=== PATIENT | female | born 1940 | race Caucasian/White ===

== ENCOUNTER 2021-07-01 14:44 | Inpatient (IN) ==
[2021-07-01] MEDS ORDERED: STAT IV Infusion **Titration per Protocol STA ×4 (14:56→17:50)
[2021-07-01] MEDS ORDERED: PROPOFOL IV EMULSION 10 MG/ML 100 ML VIAL IV ONE (14:56)
[2021-07-01] MEDS ORDERED: niCARdipine HCL INJ 2.5 MG/ML 10 ML AMP ONE (14:58)
[2021-07-01] MEDS ORDERED: HEPARIN (PORCINE) 1000 UNIT/ML 10 ML (CATH LAB USE ONLY) ONE (14:58)
[2021-07-01] MEDS ORDERED: MIDAZOLAM HCL 1 MG/ML 2ML VIAL ONE (14:58)
[2021-07-01] MEDS ORDERED: fentaNYL citrate 100 MCG/2 ML VIAL ONE (14:58)
[2021-07-01] MEDS ORDERED: NOREPINEPHRINE/D5W 8 MG/508 ML IV ONE (14:59)
[2021-07-01] MEDS ORDERED: NITROGLYCERIN/D5W 100MCG/ML 20ML SYR ONE (14:59)
[2021-07-01] MEDS ORDERED: fentaNYL citrate 2,500 MCG/250 ML BAG IV SCH (15:00)
[2021-07-01] MEDS ORDERED: NOREPINEPHRINE/D5W 8 MG/508 ML BAG IV SCH (15:15)
[2021-07-01] MEDS ORDERED: RAPID SEQUENCE INDUCTION BAG ONE (15:16)
--- NOTE | 2021-07-01 15:24 | Emergency Department Note ---
History of Present Illness General Chief Complaint: Cardiac Arrest/CPR Stated Complaint: Cardiac Arrest Time Seen by Provider: 07/01/21 14:55 Source: EMS History of Present Illness Bystander CPR performed: Yes AED applied by bystander/plastic design applier: Yes Shock advised: No ROSC in the field: Yes Treatments prior to arrival: other airway device (airgel), chest compressions, epinephrine mgs # (7) and sodium bicarbonate (1) Past Med/Surg History Medical History (Updated 07/01/21 @ 15:28 by Cody Edmond) No pertinent family history Thoracic aortic aneurysm Surgical History (Updated 07/01/21 @ 15:28 by Cody Edmond) No pertinent past surgical history Social History Smoking Status: Unknown if ever smoked Hx Substance Use: No Feels Safe at Home: Yes Review of Systems Unobtainable due to endotracheal tube Physical Exam Vital Signs: Vital Signs - 24 hr 07/01/21 14:53 07/01/21 15:20 Pulse Rate 117 H Pulse Rate [Apical ] 121 H Pulse Rhythm Regular Pulse Rhythm [Apic al] Regular Pulse Strength Normal Pulse Strength [Ap ical] Normal Respiratory Rate 18 18 Respiratory Effort / Characteristics Mechanically Venti lated Mechanically Venti lated Respiratory Depth Normal Normal Respiratory Patter n Regular Regular Blood Pressure 74/61 L Blood Pressure [Le ft Arm] 99/70 L Blood Pressure Luli n 65 Blood Pressure Luli n [Left Arm] 79 Blood Pressure Pos ition Lying Blood Pressure Pos ition [Left Arm] Lying Pulse Oximetry 97 Oxygen Delivery Me thod Mechanical Vent Mechanical Vent Sepsis Recent Feve r Within 48 Hours No Sepsis New/Unexpla ined Change in Men reena Status Yes Sepsis Action Take n by Nursing Physician Notified Physical Exam: Physical Exam GENERAL: Distressed. HENT: Exam performed. -Head: Normocephalic and atraumatic. -Mouth/Throat: I gel airway device in place. EYES: Pupils 2 mm and reactive bilaterally. CV: Tachycardic rate, regular rhythm, normal heart sounds and intact distal pulses. There is no peripheral edema. Palpable radial pulses bue. PULM/CHEST: Rhonchi bilaterally. CHEST WALL: No crepitus bilaterally. ABD: The abdomen is soft. Bowel sounds are normal. She has no distension. No mass is present. There is no tenderness. There is no rebound, no guarding, no High's sign and no tenderness at McBurney's point. Rovsig negative SKIN: Pale Procedures Intubation Time out performed: Yes sedative: none Laryngoscope: other (glide scope) ET Tube Size: 7 ET Tube Uncuffed: Yes Tube Secured Depth (cm): 25 Tube Secured Location: lips Tube Placement Confirmation: visualized tube passing through cords, equal breath sounds bilaterally and no breath sounds over epigastrium Patient Tolerated Procedure: well Intubation Complications: none Course Course 1450: The patient was evaluated in room B1. A complete history and physical exam was performed Cardiac monitoring: An order was placed for continuous cardiac monitoring. The monitor shows a rate of 130 with sinus tachycardia rhythm Patient was brought in via EMS. EMS reports that the patient was sitting in a chair called her daughter and then had loss of pulse. They state CPR was initiated by bystanders and police. Seven rounds of epinephrine were given by EMS and ROSC was achieved in the field. I-gel was placed by EMS. Given ROSC was achieved in the field heart alert was paged. On arrival patient does have a pulse. Bedside cardiac ultrasound confirmed cardiac activity and showed no cardiac tamponade. Blood pressure is stable on arrival. EKG did show ST depression and ST elevations. I gel was replaced and the patient was intubated. See procedure note. After intubation the patient was trying to pull her ET tube out. Patient was placed on propofol. Patient then became hypotensive and the patient was switched from propofol to fentanyl drip. Patient was also put on Levophed drip. Family arrived and stated that they were sitting down to dinner when the patient called her daughter clutched her left chest and then went unresponsive. Family reports they started CPR before EMS arrived. Family reports no medical history except for thoracic aortic aneurysm which has been being watched by physician in [place]. Dr. Hayes airways control specialist for heart alert arrived and confirmed no cardiac tamponade on bedside ultrasound and took the patient to cardiac prestressed concrete laborer. Administered Medications Fentanyl Citrate (Fentanyl Citrate) 2,500 mcg in 250 mls @ 2.5 mls/hr IV .Q96H [facility]; Protocol Stop: 07/15/21 14:59 Last Admin: 07/01/21 15:18 Dose: 25 mcg/hr, 2.5 mls/hr Documented by: [id number] Cosigned by: [id number] Norepinephrine Bitartrate (Levophed/D5w) 8 mg in 508 mls @ 13.03 mls/hr IV .Q24H [facility]; Protocol Stop: 07/31/21 15:14 Last Titration: 07/01/21 15:19 Dose: 0.2 mcg/kg/min, 52.1 mls/hr Documented by: [id number] Admin: 07/01/21 15:16 Dose: 0.1 mcg/kg/min, 26.1 mls/hr Documented by: [id number] Cosigned by: [id number] Discontinued Medications Propofol (Propofol Iv Emulsion 10 Mg/Ml 100 Ml Vial) Confirm Administered Dose 1,000 mg IV .STK-MED ONE Stop: 07/01/21 14:57 Last Admin: 07/01/21 15:17 Dose: 1,000 mg Documented by: [id number] Cosigned by: [id number] Medical Decision Making Laboratory Data Result diagrams: 07/01/21 15:04 07/01/21 15:04 ECG Data Additional Comments: EKG shows sinus tachycardia with a rate of 143. OK QRS and QTc intervals within normal limits. ST elevation in leads aVR and aVL. ST depression in leads II, III, aVF, V4 V5 V6. MDM Narrative The patient was evaluated in room B1. A complete history and physical exam was performed Cardiac monitoring: An order was placed for continuous cardiac monitoring. The monitor shows a rate of 130 with sinus tachycardia rhythm Patient was brought in via EMS. EMS reports that the patient was sitting in a chair called her daughter and then had loss of pulse. They state CPR was initia cecilia by bystanders and police. Seven rounds of epinephrine were given by EMS and ROSC was achieved in the field. I-gel was placed by EMS. Given ROSC was achieved in the field heart alert was paged. On arrival patient does have a pulse. Bedside cardiac ultrasound confirmed cardiac activity and showed no cardiac tamponade. Blood pressure is stable on arrival. EKG did show ST depression and ST elevations. I gel was replaced and the patient was intubated. See procedure note. After intubation the patient was trying to pull her ET tube out. Patient was placed on propofol. Patient then became hypotensive and the patient was switched from propofol to fentanyl drip. Patient was also put on Levophed drip. Family arrived and stated that they were sitting down to dinner when the patient called her daughter clutched her left chest and then went unresponsive. Family reports they started CPR b efore EMS arrived. Family reports no medical history except for thoracic aortic aneurysm which has been being watched by physician in [place]. Dr. Hayes airways control specialist for heart alert arrived and confirmed no cardiac tamponade on bedside ultrasound and took the patient to cardiac prestressed concrete laborer. Impression & Plan Cardiac arrest Critical Care Time Critical Care Time: Yes Total Critical Care Time: 38 I have personally spent greater than 38 minutes of critical care time in the direct management of this patient. This includes bedside care, interpretation of diagnostic studies, and testing, discussion with consultants, patient, and family members, and other required patient management activities. This 38 minutes is in excess of all separately billable procedures. Discharge Plan Visit Data Chief Complaint: Cardiac Arrest/CPR Stated Complaint: Cardiac Arrest ED Provider: Cody Edmond Patient Disposition: Admitted As Inpatient Forms Stand Alone Forms: My [facility] Referrals Referrals: PCP,NO [Primary Care Provider] -
[2021-07-01 15:27] LABS: INR 1.3 (0.9-1.1); Partial Thromboplastin Ratio 1.6; Partial Thromboplastin Time 40.9 Seconds (21.0-31.0); Prothrombin Time 12.9 Seconds (9.0-12.0)
--- NOTE | 2021-07-01 15:32 | XRay Report ---
XR chest 1V portable CLINICAL HISTORY: Chest pain. . Status post intubation COMPARISON STUDY: No previous studies for comparison. TECHNIQUE: 1 view of the chest FINDINGS: Single frontal view of the chest demonstrates the cardiomediastinal silhouette to be within normal li mits. An endotracheal tube has been placed with its tip approximately 4.9 cm above the kevyn. The ao rta is atherosclerotic and ectatic. The lungs are clear of alveolar opacities. There is no evidence f or pleural effusion. There is no evidence for vascular congestion. There is no acute osseous patholog y. IMPRESSION: No acute cardiopulmonary disease. Endotracheal tube in satisfactory position. ACT 112: Negative or not required by law. Electronically signed by: Edilson Ram M.D. 07/01/2021 3:30 PM
[2021-07-01 15:51] LABS: Alanine Aminotransferase 25 (12-78); Albumin Globulin Ratio 0.9 (0.9-2); Albumin Level 2.7 gm/dl (3.4-5.0); Alkaline Phosphatase 82 U/L (45-117); Aspartate Aminotransferase 23 U/L (15-37); BUN Creatinine Ratio 13.4 (10-20); Bilirubin,Total 0.5 mg/dl (0.2-1); Blood Urea Nitrogen 17 mg/dl (7-18); Calcium 8.6 mg/dl (8.5-10.1); Carbon Dioxide 20 mmol/L (21-32); Chloride 100 mmol/L (98-107); Creatine Kinase 84 U/L (26-192); Creatinine Clr Calc Pharmacy 34.4 ml/min; Est GFR (African American) 46.4 ml/min; Globulin 3.2 gm/dl (2.5-4.0); Glucose 445 mg/dl (70-99); Lipase 158 U/L (73-393); Magnesium 2.2 mg/dl (1.8-2.4); Potassium 3.9 mmol/L (3.5-5.1); Sodium 137 mmol/L (136-145); Total Protein 5.9 gm/dl (6.4-8.2); Troponin I < 0.015 ng/ml (0-0.045)
[2021-07-01 15:55] LABS: Hematocrit (blood only) 37.2 % (37-47); Hemoglobin 11.6 g/dL (12.0-16.0); Mean Corpuscular Hgb Conc 31.2 g/dL (32-36); Mean Corpuscular Volume 102.8 fL (80-100); Mean Platelet Volume 10.7 fL (7.4-10.4); Platelet Count 91 K/uL (130-400); RDW Coefficient of Variation 12.9 % (11.5-14.5); RDW Standard Deviation 49.3 fL (36.4-46.3); Red Blood Count 3.62 M/uL (4.2-5.4); White Blood Count 8.15 K/uL (4.8-10.8)
[2021-07-01 15:57] LABS: Basophils # (auto) 0.04 K/uL (0-0.2); Basophils % (auto) 0.5 %; Echinocytes 1+; Eosinophils # (auto) 0.09 K/uL (0-0.5); Eosinophils % (auto) 1.1 %; Immature Granulocytes # (auto) 0.07 K/uL (0.00-0.02); Immature Granulocytes % (auto) 0.9 %; Lymphocytes # (auto) 5.75 K/uL (1.2-3.4); Lymphocytes % (auto) 70.6 %; Monocytes # (auto) 0.23 K/uL (0.11-0.59); Monocytes % (auto) 2.8 %; Neutrophils # (auto) 1.97 K/uL (1.4-6.5); Neutrophils % (auto) 24.1 %; Platelet Estimate Decreased (Normal)
[2021-07-01 16:04] LABS: Beta-Hydroxybutyrate 1.54 mg/dl (0.2-2.81); T4 Free Thyroxine 1.02 ng/dl (0.8-1.6)
--- NOTE | 2021-07-01 16:21 | Pre Anesthesia Assessment ---
Date of Service July 01, 2021 Pre Sedation Assessment Vital Signs Pulse Pulse Resp BP BP Pulse Ox 07/01/21 15:20 121 H 18 99/70 L 97 07/01/21 15:15 95 07/01/21 15:00 125 H 24 94 07/01/21 14:56 131 H 18 95 07/01/21 14:53 117 H 18 74/61 L Cardiovascular RRR, no murmur, no edema Pre-Sedation Airway Assessment Smoking Status: Unknown if ever smoked Mallampati Class: Other (Intubated) Intubated 4 Notes The planned sedation has been discussed with the patient. Informed Consent was obtained. I have identified the patient, determined the appropriateness of sedation and have assessed the patient immediately prior to the procedure. All medicine(s) and interventions are by my order.
[2021-07-01] MEDS ORDERED: OPTIRAY 320 125ml IV ONE (16:30)
--- NOTE | 2021-07-01 16:32 | Cardiac Catheterization ---
[facility] Data: Military Education Coordinator Cardiac Status Clinical evaluation leading to the procedure CAD Presenation: Sx unlikely to be ischemic Cardiac Arrest within 24 Hours: Yes Coronary Anatomy Dominant: Right Left Main (% Stenosis): Normal LAD (% Stenosis): Normal Circumflex (% Stenosis): Normal RCA (% Stenosis): Proximal (ectasia) Left Ventricular Angiography EF (%): 70 No RWMA Mitral Regurgitation: None Diagnostic Physicians Name: Jossue Ruano MD Closure Device Percutaneous Entry Location: Radial Closure Device: None-Manual Hold Recommendations: Medical Therapy and/or Counseling (Pt to CT from solder making laborer to evaluate for PUBLIC RELATIONS PROFESSIONAL pathology/ PE/ and Aortic Dissection. Discussed with bus greaser Dr Humphreys) Cardiac Cath Procedure Full Procedure Date July 01, 2021 Pre-Procedure Diagnosis Pre-Procedure Diagnosis: Acute Coronary Syndrome AUC Score AUC Score: Appropriate Post-Procedure Diagnosis Post-Procedure Diagnosis: Mild CAD and Normal LV Systolic Function Procedure(s) Performed Procedure(s) Performed: Coronary Angiography and LV Angiography Inside Barrel Polisher Jossue Ruano MD Estimated Blood Loss Estimated Blood Loss: None Summary of Findings 80 WF visiting from [facility] no prior cardiac history BIBA following witnessed arrest at home. EKG + inferolateral ST depression prompting referral for urgent cath. On arrival to lab pt had SBP 100 on Levophed. and was intubated PMH + Asc and Descending Aortic Aneurysms/ Breast Ca s/p Lumpectomy and XRT Hemodynamics Rest Ao:: 110/70 Final Ao: 104/70 LV: 104/10 Recommendations Recommendations: Medical Therapy and/or Counseling (Pt to CT from solder making laborer to evaluate for PUBLIC RELATIONS PROFESSIONAL pathology/ PE/ and Aortic Dissection. Discussed with bus greaser Dr Humphreys) Radiation Exposure (mGy) 258 Contrast (mls) 35 Procedural Complication(s) None Disposition ICU I attest to the content of the Intraoperative Record and any orders documented therein. Any exceptions are noted below. PG Care Time/CCT Total # of Minutes Spent Total Time Spent with Patient: Total time spent is greater than 50% in coordination of care (as documented) at patient's floor/unit and/or counseling patient:
--- NOTE | 2021-07-01 16:41 | CT Scan Report ---
CT head/brain wo con CLINICAL HISTORY: s/p cardiac arrest . Altered mental status COMPARISON STUDY: No previous studies for comparison. CT DOSE: TECHNIQUE: Standard CT of the Brain was performed without IV contrast. A dose lowering technique was utilized adhering to the principles of ALARA. FINDINGS: Contrast is present from earlier CTAs of the chest, abdomen and pelvis Extraaxial space: There is no evidence for subdural hematoma. There are no extra-axial fluid collecti ons. Ventricles and cisterns: The ventricles are normal in size and configuration. There is no evidence f or midline shift or mass effect. Parenchyma: There is no subarachnoid or intraparenchymal hemorrhage. There is no evidence for an acu te infarct or cerebral edema. There is homogeneous attenuation of the brain parenchyma. There are no gross mass lesions. Osseous structures: There is no evidence for an acute fracture. The visualized paranasal sinuses are clear. The mastoid air cells are clear bilaterally. Soft tissues: There is no evidence for focal soft tissue swelling. IMPRESSION: No acute intracerebral pathology. ACT 112: Negative or not required by law. Electronically signed by: Edislon Ram M.D. 07/01/2021 4:39 PM
--- NOTE | 2021-07-01 16:49 | CT Scan Report ---
CT angio chest PE protocol CLINICAL HISTORY: Status post cardiac arrest. Very for pulmonary embolus COMPARISON STUDY: Portable chest from 07/01/2021 CT DOSE: TECHNIQUE: CT Angio of the chest was performed.followed by image post processing with coronal, and s agittal MIP reformats. Contrast Volume: Optiray 320, 119 ml FINDINGS: Vasculature: There is homogeneous perfusion of the pulmonary vasculature bilaterally. No intraluminal filling defects or evidence for pulmonary embolus is seen. Airway: An endotracheal tube is in place with its tip above the kevyn. Lungs: There is a small left pleural effusion. There is bibasilar atelectasis, left greater than righ t. The lungs are otherwise clear of acute alveolar opacities, air bronchograms or pulmonary nodules. No evidence for pneumothorax Mediastinum: There is evidence for a mediastinal hematoma with evidence for fluid within the anterior and medial mediastinum. This is probably related to chest compressions. This had the appearance of a n ectatic aorta radiographically. The heart size is within normal limits. The thoracic aorta is withi n normal limits. There is also an associated moderate-sized pericardial effusion. Osseous structures: There is no acute osseous pathology. Impression: 1. No CTA evidence for pulmonary embolus. 2. Small left pleural effusion and bibasilar atelectasis, left greater than right. 3. Mediastinal hematoma most likely due to chest compressions with hemorrhage within the anterior and middle mediastinum. 4. There is also a moderate size pericardial effusion. ACT 112: Negative or not required by law. Electronically signed by: Edilson Ram M.D. 07/01/2021 4:48 PM
[2021-07-01] MEDS ORDERED: ICU PROTOCOL FOR HYPERGLYCEMIA PRN (17:04)
[2021-07-01] MEDS ORDERED: VASOPRESSIN 20 UNITS in 0.9 % SODIUM CHLORIDE 100 ML IV SCH (17:45)
[2021-07-01] MEDS ORDERED: HYDROCORTISONE SOD 200 MG in SYRINGE 0 ML IV STA (17:50)
--- NOTE | 2021-07-01 17:57 | History & Physical Report ---
Date of Service July 01, 2021 Assessment & Plan (1) Cardiac arrest: Plan: Patient is 80-year-old female with unknown PMH presented to ER for outpatient cardiac arrest with bystander CPR and ROSC in field. Upon ER arrival EKG + inferolateral ST depression and patient went to [facility]. Patient on levophed. Reported unremarkable cardiac cath and patient was transferred to ICU. In ICU patient had another cardiac arrest. At bedside patient currently receiving cardiac resuscitation Further treatment per full stack php developer Unable to thoroughly evaluate pt secondary to ongoing cardiac arrest and ICU management. Pt was care coordinated with Dr Palacio. See addendum Admission and Anticipated Discharge Date Admission Date: July 01, 2021 History of Present Illness Chief Complaint: Cardiac arrest Primary Care Provider: NO PCP Patient is 80-year-old female with unknown PMH presented to ER for cardiac arrest. History obtained from ER notes secondary to patient's current status. It is reported patient was eating when she suddenly collapsed her chest is reported patient had loss of consciousness and family reports no pulse or breathing. Family started CPR. Is reported EMS transported and intubated patient is reported patient had ROSC in route. Upon ER arrival EKG + inferolateral ST depression and patient went to [facility]. Patient on levophed. Reported unremarkable cardiac cath and patient was transferred to ICU. In ICU patient had another cardiac arrest. At bedside patient currently receiving CPR Past Med/Surg History Medical History No pertinent family history Thoracic aortic aneurysm Surgical History No pertinent past surgical history Social History Smoking Status: Unknown if ever smoked Hx Alcohol Use: No Hx Substance Use: No Preferred Language: Lao Communication Ability: Effective Casey Saw Operator Required: No Beliefs That Will Affect Care: None Current Living Situation: Spouse Feels Safe at Home: Yes Assistive Devices: None Review of Systems Review of Systems: Unobtainable due to endotracheal tube Physical Exam Physical Exam: Thorough physical exam unobtainable at this time Patient was in ICU prior to hospitalist evaluation and suffered another cardiac arrest At bedside patient undergoing current CPR and cardiac resuscitation measures Results & Data Results & Data ([facility]) Vital Signs (Past 12 Hours) Vital Signs Temp Pulse Pulse Resp BP BP Pulse Ox 07/01/21 17:18 34 C L 84 22 92/59 L 92 07/01/21 17:12 81 07/01/21 17:06 34.2 C L 83 22 109/75 96 07/01/21 15:20 121 H 18 99/70 L 97 07/01/21 15:15 95 07/01/21 15:00 125 H 24 94 07/01/21 14:56 131 H 18 95 07/01/21 14:53 117 H 18 74/61 L Laboratory Results Short CBC 07/01/21 Range/Units 15:04 WBC 8.15 (4.8-10.8) K/uL Hgb 11.6 L (12.0-16.0) g/dL Hct 37.2 (37-47) % Plt Count 91 L (130-400) K/uL BMP 07/01/21 15:04 Sodium 137 Potassium 3.9 Chloride 100 Carbon Dioxide 20 L BUN 17 Creatinine 1.28 H Glucose 445 H* Calcium 8.6 Cardiac Enzymes 07/01/21 Range/Units 15:04 Total Creatine Kinase 84 (26-192) U/L CK-MB (CK-2) 1.0 (0.5-3.6) ng/ml Troponin I < 0.015 (0-0.045) ng/ml Liver Function 07/01/21 Range/Units 15:04 Total Bilirubin 0.5 (0.2-1) mg/dl AST 23 (15-37) U/L ALT 25 (12-78) Alkaline Phosphatase 82 (45-117) U/L Albumin 2.7 L (3.4-5.0) gm/dl Diagnostic Findings Chest X-Ray 07/01/21 14:56 XR chest 1V portable CLINICAL HISTORY: Chest pain. . Status post intubation COMPARISON STUDY: No previous studies for comparison. TECHNIQUE: 1 view of the chest FINDINGS: Single frontal view of the chest demonstrates the cardiomediastinal silhouette to be within normal limits. An endotracheal tube has been placed with its tip approximately 4.9 cm above the kevyn. The aorta is atherosclerotic and ectatic. The lungs are clear of alveolar opacities. There is no evidence for pleural effusion. There is no evidence for vascular congestion. There is no acute osseous pathology. IMPRESSION: No acute cardiopulmonary disease. Endotracheal tube in satisfactory position. ACT 112: Negative or not required by law. Electronically signed by: Edilson Ram M.D. 07/01/2021 3:30 PM Chest CTA 07/01/21 15:46 CT angio chest PE protocol CLINICAL HISTORY: Status post cardiac arrest. Very for pulmonary embolus COMPARISON STUDY: Portable chest from 07/01/2021 CT DOSE: TECHNIQUE: CT Angio of the chest was performed.followed by image post processing with coronal, and sagittal MIP reformats. Contrast Volume: Optiray 320, 119 ml FINDINGS: Vasculature: There is homogeneous perfusion of the pulmonary vasculature bilaterally. No intraluminal filling defects or evidence for pulmonary embolus is seen. Airway: An endotracheal tube is in place with its tip above the kevyn. Lungs: There is a small left pleural effusion. There is bibasilar atelectasis, left greater than right. The lungs are otherwise clear of acute alveolar opacities, air bronchograms or pulmonary nodules. No evidence for pneumothorax Mediastinum: There is evidence for a mediastinal hematoma with evidence for fluid within the anterior and medial mediastinum. This is probably related to chest compressions. This had the appearance of an ectatic aorta radiographically. The heart size is within normal limits. The thoracic aorta is within normal limits. There is also an associated moderate-sized pericardial effusion. Osseous structures: There is no acute osseous pathology. Impression: 1. No CTA evidence for pulmonary embolus. 2. Small left pleural effusion and bibasilar atelectasis, left greater than right. 3. Mediastinal hematoma most likely due to chest compressions with hemorrhage within the anterior and middle mediastinum. 4. There is also a moderate size pericardial effusion. ACT 112: Negative or not required by law. Electronically signed by: Edilson Ram M.D. 07/01/2021 4:[address] 07/01/21 15:47 CT head/brain wo con CLINICAL HISTORY: s/p cardiac arrest . Altered mental status COMPARISON STUDY: No previous studies for comparison. CT DOSE: TECHNIQUE: Standard CT of the Brain was performed without IV contrast. A dose lowering technique was utilized adhering to the principles of ALARA. FINDINGS: Contrast is present from earlier CTAs of the chest, abdomen and pelvis Extraaxial space: There is no evidence for subdural hematoma. There are no extra-axial fluid collections. Ventricles and cisterns: The ventricles are normal in size and configuration. There is no evidence for midline shift or mass effect. Parenchyma: There is no subarachnoid or intraparenchymal hemorrhage. There is no evidence for an acute infarct or cerebral edema. There is homogeneous attenuation of the brain parenchyma. There are no gross mass lesions. Osseous structures: There is no evidence for an acute fracture. The visualized paranasal sinuses are clear. The mastoid air cells are clear bilaterally. Soft tissues: There is no evidence for focal soft tissue swelling. IMPRESSION: No acute intracerebral pathology. ACT 112: Negative or not required by law. Electronically signed by: Edilson Ram M.D. 07/01/2021 4:39 PM Abdomen/Pelvis CTA 07/01/21 16:24 CT angio abdomen pelvis w con CLINICAL HISTORY: Status post cardiac arrest. Evaluate for possible dissection. COMPARISON STUDY: No previous studies for comparison. CT DOSE: 1257.03 mGy.cm TECHNIQUE: Standard CT Angiogram of the aorta was performed with IV contrast followed by image post processing with coronal, and sagittal MIP reformats... This CT exam was performed using one or more of the following dose reduction techniques: Automated exposure control, adjustment of the mA and/or kV according to patient size, or use of iterative reconstruction technique. CONTRAST: Optiray 320, 119 mL nonionic intravenous contrast. VASCULAR FINDINGS: Abdominal aorta: patent without aneurysm or dissection. Mild atherosclerotic calcification is present. Celiac trunk: patent without stenosis. Superior mesenteric artery: patent without stenosis. Right renal artery: patent without stenosis. Left renal artery: patent without stenosis. Inferior mesenteric artery: patent without stenosis. Right common iliac artery: patent without stenosis. Right internal iliac artery: patent without stenosis. Right external iliac artery: patent without stenosis. Left common iliac artery: patent without stenosis. Left internal iliac artery: patent without stenosis. Left external iliac artery: patent without stenosis NONVASCULAR FINDINGS: Abdominal cavity: There is no evidence for abdominal mass, adenopathy or ascites. Liver: There is homogeneous attenuation of the liver parenchyma. There is no evidence for enhancing mass lesion. Spleen: There is homogeneous attenuation of the splenic parenchyma. There is no enhancing mass lesion. Pancreas: There is homogeneous attenuation of the pancreatic parenchyma. There is no evidence for mass lesion or peripancreatic fluid collection. Gall Bladder: The gallbladder is well distended with no evidence for intraluminal calculi, wall thickening or pericholecystic edema. Adrenal glands: The adrenal glands are normal in size and attenuation. There is no evidence for enhancing mass lesion. Kidneys: There is homogeneous attenuation of the renal parenchyma bilaterally. There is no evidence for renal calculus or hydronephrosis. There is no evidence for enhancing mass. Bowel: Small bowel loops are fluid-filled throughout the abdomen and pelvis without evidence for disproportionate dilatation or obstruction. Findings are most characteristic of an ileus versus gastroenteritis. Fecal material is seen within the normal caliber colon. There is sigmoid diverticulosis without evidence of diverticulitis. There are no inflammatory changes present. There is no evidence for free air. Bladder: Llanos catheter is present within the bladder. : There is no evidence for pelvic mass or adenopathy. There is no evidence for pelvic ascites. Osseous structures: There is no acute osseous pathology. Degenerative changes seen within the spine. IMPRESSION: 1. Normal CTA of the abdomen with no evidence for abdominal aneurysm, dissection or leakage. 2. Evidence for ileus versus gastroenteritis of the small bowel. 3. Diverticulosis without evidence for diverticulitis. 4. Additional nonacute findings are delineated above. ACT 112: Negative or not required by law. Electronically signed by: Edilson Ram M.D. 07/01/2021 7:23 PM Code Status & VTE Plan VTE Prophylaxis Plan VTE Prophylaxis will be ordered: Yes Supervising Physician Co-Signing Physician Notes Pt's care coordinated with Denita Black pls refer to her note for furherv detail. Patient is 80 yo female with unknown PMH who presented to ER after cardiac arrest at home. History obtained from ER notes/ family. It is reported patient was eating when she suddenly held her chest and subsequently lost consciousness. Family started CPR. EMS intubated patient and reported patient had ROSC in route. Upon ER arrival EKG + inferolateral ST depression and patient went to [facility]. Patient on levophed. Reported unremarkable cardiac cath and patient was transferred to ICU. In ICU patient had another cardiac arrest. At bedside, unable to obtain hx from the pt or do a full exam exam, as pt patient actively receiving CPR. Dr. Humphreys (full stack php developer) at the bedside. Unfortunately, pt was not revived. Per full stack php developer, cause of , likely cardiac tamponade followed by cardiac arrest and shock. Etiology unclear. Mani Palacio MD
[2021-07-01] MEDS ORDERED: EPINEPHrine/NSS 4 MG/254 ML BAG IV SCH (18:00)
[2021-07-01] MEDS ORDERED: SODIUM BICARB 8.4% INJ 50 MEQ/50 ML SYR IV ONE ×2 (18:01→18:29)
--- NOTE | 2021-07-01 18:09 | Procedure Note ---
Procedure Note Date of Service July 01, 2021 Note Bedside Ultrasound: Lung: Positive B-lines bilateral posteriorly, a lines anteriorly,No significant pleural effusion Heart: Viscus pericardial effusion appreciated, collapse of the right ventricle as well as right atrium. Good ejection fraction. Possible LVH Abdomen: No ascites Plan: I called and updated the cdl company driver who did the cardiac cath regarding the possibility of pericardial tamponade I ordered stat 2D echo as well I spoke with Dr. Rosales on the phone so that he can look at the bedside ultrasound images which are uploaded into the system Please note the above document was generated using voice recognition software. It may contain grammatical, syntax or spelling errors.Any formal questions or concerns about the content, text or information contained within the body of this dictation should be directly addressed to the provider for clarification. Coding CPT Codes Pulmonary/Thoracic - Pulmonary and Thoracic: 11129 US, Chest, real time with imaging documentation ([id number]) [facility] [place] (Charges) Pulmonary/Thoracic Procedure 1: Pulmonary and Thoracic: 62502 US, Chest, real time with imaging documentation
[2021-07-01] MEDS ORDERED: CALCIUM CHLORIDE 10% 10 ML SYR IV ONE ×2 (18:27→18:29)
[2021-07-01] MEDS ORDERED: SODIUM CHLORIDE 0.9% 10ML FLUSH IV ONE (18:29)
--- NOTE | 2021-07-01 18:42 | Critical Care Consultation ---
Date of Consultation July 01, 2021 Assessment & Plan (1) Cardiac arrest: (2) Pericardial effusion: --Cardiac arrest Troponin negative Clean coronaries Continue monitor hemodynamics on telemetry CTA chest did not show any signs of PE, no aortic dissection The only finding was pericardial effusion Minimal atelectasis bilateral lower lobes I personally looked at CT abdomen pelvis and I was not able to find any aortic dissection in the abdomen or any other organ abnormality which might be causing the patient's presentation --Shock Likely cardiogenic No clear signs of infection Continue with vasopressor support to keep MAP greater than 65 --Pericardial effusion Etiology unclear We will get a dedicated 2D echo -- NOLAN Follow-up urine lites Monitor BUN/creatinine Avoid nephrotoxic medications Strict ins and outs --High anion gap metabolic acidosis Likely from lactic acidosis We will order and trend lactate Plan: Continue with vasopressor support to keep MAP greater than 65 Etiology of cardiac arrest is unclear Distributive shock from allergy is a possibility as patient was having peppers which she never had before prior to this But low in differential I did speak with the patient as well as family and gave update of what is going on All questions queries of them were answered in depth. I have personally spent 63 minutes of critical care time in the direct management of this patient. This is a life/limb threatening event. This includes time spent evaluating patient, direct bedside care, chart review, placing orders, interpretation of diagnostic studies, discussion with consultants, patient, and family members, as well as other required patient management activities. This time is exclusive of all separately billable procedures, and teaching time and separate from and in addition to any other critical care service time. Please note the above document was generated using voice recognition software. It may contain grammatical, syntax or spelling errors. History of Present Illness Attending Physician: Hua Palacio MD History of Present Illness 80-year-old female was brought in by the EMS post cardiac arrest She had gone multiple rounds of epi prior to coming into the hospital Because of ST depression found on the EKG patient was sent to [facility] Attendant In the [facility] Attendant patient had clean coronaries. A quick signout was given to me by the plush cutter. History was pain from patient Patient was sitting on the chair when suddenly she started to complain of chest tightness and that she felt back. No history of trauma. No known history of any insect bite. At the time of examination patient was already on 0.3 of Levophed. She was on the vent, she was breathing over the vent Map was in the high 70s to low 80s. Patient was not following commands. She was hypothermic this by bear hugger was initiated. Bedside ABG was done which showed a pH of 7.15. 3 A of bicarb was given to the patient Patient History Medical History (Updated 07/01/21 @ 19:01 by Jodi Humphreys MD) No pertinent family history Thoracic aortic aneurysm Surgical History (Updated 07/01/21 @ 15:28 by Cody Edmond) No pertinent past surgical history Social History Smoking Status: Unknown if ever smoked Hx Alcohol Use: No Hx Substance Use: No Preferred Language: Tajik Communication Ability: Effective Sewing Inspector Required: No Beliefs That Will Affect Care: None Current Living Situation: Spouse Feels Safe at Home: Yes Safety Concerns: Feels Safe At This Time Assistive Devices: None Review of Systems Review of Systems: Unobtainable due to endotracheal tube Physical Exam Physical Exam: Constitutional: No acute distress HEENT:PERRLA Respiratory system: Good air entry bilaterally, no wheeze, no rhonchi, no crackles CVS: S1-S2 positive, no murmurs or gallops, distant heart sounds Abdomen: Soft, nontender, nondistended, positive bowel sounds x4 Extremities: +2 pulses bilaterally radialis/ dorsalis pedis, no cyanosis, no edema Neuro: Sedated on fentanyl, breathing over the vent Psych: Unable to assess G/U: Positive Llanos Skin: no rashes, warm and dry Lymphatic: no cervical or axillary lymphadenopathy Results & Data Results & Data ([facility]) Vital Signs (Past 12 Hours) Vital Signs Temp Pulse Pulse Resp BP BP Pulse Ox 07/01/21 17:18 34 C L 84 22 92/59 L 92 07/01/21 17:12 81 07/01/21 17:06 34.2 C L 83 22 109/75 96 07/01/21 16:45 89 25 H 100 07/01/21 15:20 121 H 18 99/70 L 97 07/01/21 15:15 95 07/01/21 15:00 125 H 24 94 07/01/21 14:56 131 H 18 95 07/01/21 14:53 117 H 18 74/61 L 07/01/21 15:04 07/01/21 15:04 Coding Level of Care Code Critical Care 1st 30-74 mins Diagnoses Cardiac arrest I46.9 Pericardial effusion I31.3 Time Spent (min) 63
--- NOTE | 2021-07-01 18:43 | Communication Note ---
Date of Service: July 01, 2021 Critical CARE addendum: Patient suddenly had increasing requirements of vasopressors She was on maxed out Levophed, vasopressin as well as epinephrine were ordered I did a bedside ultrasound which showed possible tamponade it like etiology I went down to call the tile applicator meanwhile patient lost the pulse and CODE GREGORIO was called at 6:05 PM Total 7 doses of epi, 4 A of bicarb, 3 amp of calcium chloride were given. Unfortunately patient was not able to be revived. Time of 6:30 PM. Patient's was called and made aware. Condolences were offered. I have personally spent 35 minutes of critical care time in the direct management of this patient. This is a life/limb threatening event. This includes time spent evaluating patie nt, direct bedside care, chart review, placing orders, interpretation of diagnostic studies, discussion with consultants, patient, and family members, as well as other required patient management activities. This time is exclusive of all separately billable procedures, and teaching time and separate from and in addition to any other critical care service time. Please note the above document was generated using voice recognition software. It may contain grammatical, syntax or spelling errors. Coding Level of Care Code Critical Care frank addt'l 30 min Time Spent (min) 35
--- NOTE | 2021-07-01 19:24 | CT Scan Report ---
CT angio abdomen pelvis w con CLINICAL HISTORY: Status post cardiac arrest. Evaluate for possible dissection. COMPARISON STUDY: No previous studies for comparison. CT DOSE: 1257.03 mGy.cm TECHNIQUE: Standard CT Angiogram of the aorta was performed with IV contrast followed by image post processing with coronal, and sagittal MIP reformats... This CT exam was performed using one or more of the following dose reduction techniques: Automated ex posure control, adjustment of the mA and/or kV according to patient size, or use of iterative reconst ruction technique. CONTRAST: Optiray 320, 119 mL nonionic intravenous contrast. VASCULAR FINDINGS: Abdominal aorta: patent without aneurysm or dissection. Mild atherosclerotic calcification is present . Celiac trunk: patent without stenosis. Superior mesenteric artery: patent without stenosis. Right renal artery: patent without stenosis. Left renal artery: patent without stenosis. Inferior mesenteric artery: patent without stenosis. Right common iliac artery: patent without stenosis. Right internal iliac artery: patent without stenosis. Right external iliac artery: patent without stenosis. Left common iliac artery: patent without stenosis. Left internal iliac artery: patent without stenosis. Left external iliac artery: patent without stenosis NONVASCULAR FINDINGS: Abdominal cavity: There is no evidence for abdominal mass, adenopathy or ascites. Liver: There is homogeneous attenuation of the liver parenchyma. There is no evidence for enhancing m ass lesion. Spleen: There is homogeneous attenuation of the splenic parenchyma. There is no enhancing mass lesion . Pancreas: There is homogeneous attenuation of the pancreatic parenchyma. There is no evidence for mas s lesion or peripancreatic fluid collection. Gall Bladder: The gallbladder is well distended with no evidence for intraluminal calculi, wall thick ening or pericholecystic edema. Adrenal glands: The adrenal glands are normal in size and attenuation. There is no evidence for enhan cing mass lesion. Kidneys: There is homogeneous attenuation of the renal parenchyma bilaterally. There is no evidence f or renal calculus or hydronephrosis. There is no evidence for enhancing mass. Bowel: Small bowel loops are fluid-filled throughout the abdomen and pelvis without evidence for disp roportionate dilatation or obstruction. Findings are most characteristic of an ileus versus gastroent eritis. Fecal material is seen within the normal caliber colon. There is sigmoid diverticulosis witho ut evidence of diverticulitis. There are no inflammatory changes present. There is no evidence for fr ee air. Bladder: Llanos catheter is present within the bladder. : There is no evidence for pelvic mass or adenopathy. There is no evidence for pelvic ascites. Osseous structures: There is no acute osseous pathology. Degenerative changes seen within the spine. IMPRESSION: 1. Normal CTA of the abdomen with no evidence for abdominal aneurysm, dissection or leakage. 2. Evidence for ileus versus gastroenteritis of the small bowel. 3. Diverticulosis without evidence for diverticulitis. 4. Additional nonacute findings are delineated above. ACT 112: Negative or not required by law. Electronically signed by: Edilson Ram M.D. 07/01/2021 7:23 PM
[2021-07-02] MEDS ORDERED: INFLUENZA VACCINE HIGH DOSE PF 65+ 0.7 ML SYR IM ONE (08:00)
--- NOTE | 2021-07-02 10:32 | Electrocardiogram Report ---
Test Reason : Blood Pressure : / mmHG Vent. Rate : 143 BPM Atrial Rate : 143 BPM P-R Int : 148 ms QRS Dur : 080 ms QT Int : 262 ms P-R-T Axes : 073 -56 098 degrees QTc Int : 404 ms Sinus tachycardia with Premature atrial complexes Left axis deviation Nonspecific ST and T wave abnormality Abnormal ECG No previous ECGs available Confirmed by Delmar Martines ([id number]) on 07/02/2021 10:31:32 AM Referred By: REFERRED SELF Confirmed By:Delmar Martines
[2021-07-04 09:53] LABS: iSTAT Arterial Blood Gas pH 7.16 (7.35-7.45)
[2021-07-04 09:54] LABS: iSTAT Arterial Blood Gas HCO3 14 meg/L (19-24); iSTAT Arterial Blood Gas pCO2 40 mmHg (35-46); iSTAT Arterial Blood Gas pO2 147 mmHg (80-95); iSTAT Carbon Dioxide 15 mmol/L (24-31)
[2021-07-04 09:55] LABS: iSTAT Allen Test Not Performed; iSTAT FiO2 99 %; iSTAT Sample Type Arterial
--- NOTE | 2021-07-07 13:27 | Discharge Summary ---
Date of Service July 01, 2021 Admission HPI Per Admitting Provider Patient is 80-year-old female with unknown PMH presented to ER for cardiac arrest. History obtained from ER notes secondary to patient's current status. It is reported patient was eating when she suddenly collapsed her chest is reported patient had loss of consciousness and family reports no pulse or breathing. Family started CPR. Is reported EMS transported and intubated patient is reported patient had ROSC in route. Upon ER arrival EKG + inferolateral ST depression and patient went to [facility]. Patient on levophed. Reported unremarkable cardiac cath and patient was transferred to ICU. In ICU patient had another cardiac arrest. At bedside patient currently receiving CPR Admission Exam Per Admitting Provider Unable to perform physical exam as pt was actively receiving CPR per rn progressive care unit: Physical Exam: Constitutional: No acute distress HEENT:PERRLA Respiratory system: Good air entry bilaterally, no wheeze, no rhonchi, no crackles CVS: S1-S2 positive, no murmurs or gallops, distant heart sounds Abdomen: Soft, nontender, nondistended, positive bowel sounds x4 Extremities: +2 pulses bilaterally radialis/ dorsalis pedis, no cyanosis, no edema Neuro: Sedated on fentanyl, breathing over the vent Psych: Unable to assess G/U: Positive [place] Skin: no rashes, warm and dry Lymphatic: no cervical or axillary lymphadenopathy Principal Diagnosis cardiac arrest cardiac tamponade shock Discharge Exam Time of 18:30 on 07/01/2021 after PEA and unsuccessful resuscitation efforts. Discharge Data Consultations 07/01/21 17:04 Consult [employer] Routine Procedures Performed Operation Date: 07/01/21 15:00 Actual Procedures p Cath, Left with Cors and Vent - Jossue Ruano MD s Cineradiography w/Routine Exam - Jossue Ruano MD s Central Venous Cath Placement - Jossue Ruano MD s Fluoroscopy Up To 1 Hour - Jossue Ruano MD s Ultrasound Vascular Access - Jossue Ruano MD Ordered Studies 07/01/21 15:00 CL Cath Imgs for PACS use only Stat 07/01/21 15:46 CT angio chest PE protocol Stat Impression: 1. No CTA evidence for pulmonary embolus. 2. Small left pleural effusion and bibasilar atelectasis, left greater than right. 3. Mediastinal hematoma most likely due to chest compressions with hemorrhage within the anterior and middle mediastinum. 4. There is also a moderate size pericardial effusion. 07/01/21 15:47 CT head/brain wo con Stat IMPRESSION: No acute intracerebral pathology. 07/01/21 16:24 CT angio abdomen pelvis w con Stat IMPRESSION: 1. Normal CTA of the abdomen with no evidence for abdominal aneurysm, dissection or leakage. 2. Evidence for ileus versus gastroenteritis of the small bowel. 3. Diverticulosis without evidence for diverticulitis. 4. Additional nonacute findings are delineated above. 07/01/21 17:54 US point of care ultrasound Urgent Hospital Course (1) Cardiac arrest: Patient is 80-year-old female with unknown PMH presented to ER for outpatient cardiac arrest with bystander CPR and ROSC in field. Upon ER arrival EKG + inferolateral ST depression and patient went to [facility]. Patient on levophed. Reported unremarkable cardiac cath and patient was transferred to ICU. In ICU patient had another cardiac arrest. Unable to thoroughly evaluate pt secondary to ongoing cardiac arrest, actively being resuscitated by ICU team. Unfortunately, pt was unable to be revived, time of 18:30, 07/01/2021, Per rn progressive care unit cause of likely cardiac tamponade followed by cardiac arrest and shock. Etiology however unclear. Total Time Total Time Spent Total Time Spent (In Minutes): 10 Discharge Plan Discharge Items Patient Disposition: Other Date/Time: 07/01/21 18:30
== END 2021-07-01 18:30 | disposition expired | DRG 287 ==
LOC: ED 14:44 → CC 15:30 → 1E 16:21